=== PATIENT | female | born 2000 | race Caucasian/White ===

== ENCOUNTER 2019-04-05 11:16 | Emergency (ER) | payer SELFPAY | END 2019-04-05 14:20 | disposition home or self-care (01) | LOC: E/R 11:16 | DX: T40.4X1A Poisoning by other synthetic narcotics, accidental (unintentional), initial encounter (principal); X58.XXXA Exposure to other specified factors, initial encounter; Y92.9 Unspecified place or not applicable | CPT/HCPCS: 99283 ==